=== PATIENT | male | born 1990 | race Caucasian/White ===

== ENCOUNTER → 2017-09-25 | Outpatient (REF) | payer BC ==
[2017-09-25 13:57] LABS: SEMEN APPEARANCE OPAQUE (OPAQUE); SEMEN VISCOSITY LIQUID (LIQUID); SEMEN VOLUME 1.5 ml (4.0-5.0); SEMEN pH 8.5 (7.0-8.0); SPERM CONCENTRATION 59.7 M/ml (>=15.0); WBC CONCENTRATION >1 M/ml (<=1 M/ml)
[2017-09-25 13:58] LABS: % NORMAL FORMS 11 % (>=4); IMMOTILITY 38 %; NON PROGRESSIVE MOTILITY (c) 15 %; PROGRESSIVE MOTILITY (a) 47 % (>=32); SPERM# 89.5 M/Ejac (>=39); TOTAL FUNCTIONAL 10.3 M/Ejac.; TOTAL MOTILITY 62 % (>=40); TOTAL PROGRESSIVE SPERM 41.6 M/Ejac.
== END ==
LOC: M LAB REF 12:39
DX: Z31.41 Encounter for fertility testing (principal)
CPT/HCPCS: 89320

== ENCOUNTER → 2019-04-19 | Outpatient (REF) | LOC: M LAB LCGH 15:27 | PROVIDERS: ATTEND Surgery | DX: K82.8 Other specified diseases of gallbladder (principal) ==